=== PATIENT | female | born 1970 | race Caucasian/White ===

== ENCOUNTER 2016-11-25 00:30 | Emergency (ER) | payer MEDICAID, OTHER ==
[~2016-11-25] VITALS: Ht 170.2 cm; Wt 109.0 kg
[~2016-11-25 00:30] MED LIST: PREN-88 PO
[2016-11-25 04:36] VITALS: BP 125/75
== END 2016-11-25 04:38 | disposition home or self-care (01) ==
LOC: ER 00:30
DX: L50.8 Other urticaria (principal)
CPT/HCPCS: 99283

== ENCOUNTER 2020-07-10 04:00 | Emergency (ER) | payer MEDICAID, OTHER ==
[~2020-07-10] VITALS: Ht 162.6 cm; Wt 105.0 kg
[2020-07-10] MEDS ORDERED: IOHEXOL-300 100 ML BOTTLE ONE (04:43)
[2020-07-10 05:16] LABS: BASOPHILS % 1.2 % (0.0-2.0); EOSINOPHILS % 1.7 % (0.0-5.0); HEMATOCRIT. 40.5 % (36.0-48.0); HEMOGLOBIN. 13.4 g/dL (12.0-16.0); LYMPHOCYTES % 19.5 % (20.0-50.0); MEAN CORPUSCULAR HEMOGLOBIN 28.2 pg (28.0-32.0); MEAN CORPUSCULAR VOLUME 85.5 fL (81.0-99.0); MEAN PLATELET VOLUME 9.9 fl (7.4-10.4); MONOCYTES % 7.1 % (2.0-8.0); NEUTROPHILS % 70.5 % (40.0-76.0); PLATELET 183 x1000/uL (130-400); RED BLOOD CELL COUNT 4.74 mill/uL (4.2-5.4)
[2020-07-10 05:19] LABS: CHLORIDE 106 mEq/L (98-107)
[2020-07-10 05:22] LABS: PROTHROMBIN TIME 10.5 sec (9.6-11.0)
[2020-07-10 05:26] LABS: ETHANOL BLOOD < 10 mg/dL
[2020-07-10 05:33] LABS: HCG SCREEN NEGATIVE
[2020-07-10] MEDS ORDERED: ONDANSETRON HCL 4MG/2ML INJ IV ONE (06:30)
[2020-07-10] MEDS ORDERED: MORPHINE SULFATE 4 MG/ML CPJ (NOT FOR IM USE) IV ONE (06:30)
[2020-07-10] MEDS ORDERED: T3 PO (08:22)
[2020-07-10] MEDS ORDERED: ONDA4TAB5 MT (08:22)
[2020-07-10 10:49] VITALS: BP 114/70
== END 2020-07-10 12:12 | disposition home or self-care (01) ==
LOC: ER 04:00
DX: R10.9 Unspecified abdominal pain (principal); M25.511 Pain in right shoulder; Z86.73 Personal history of transient ischemic attack (TIA), and cerebral infarction without residual deficits; Z79.899 Other long term (current) drug therapy
CPT/HCPCS: 36415; 71045; 73030; 74176; 80053; 80320; 83605; 83690; 84484; 84703; 85025; 85610; 86850; 86900; 86901; 93005; 99285; Q9967; G0480

== ENCOUNTER 2020-07-28 21:02 | Emergency (ER) | payer MEDICAID ==
[~2020-07-28] VITALS: Ht 170.2 cm; Wt 98.0 kg
[~2020-07-28 21:02] MED LIST changes: +ONDA4TAB5 MT; +T3 PO
[2020-07-29 00:43] LABS: BASOPHILS % 0.8 % (0.0-2.0); EOSINOPHILS % 0.9 % (0.0-5.0); HEMATOCRIT. 39.8 % (36.0-48.0); HEMOGLOBIN. 13.1 g/dL (12.0-16.0); LYMPHOCYTES % 23.5 % (20.0-50.0); MEAN CORPUSCULAR HEMOGLOBIN 28.3 pg (28.0-32.0); MEAN CORPUSCULAR VOLUME 85.9 fL (81.0-99.0); MEAN PLATELET VOLUME 10.5 fl (7.4-10.4); MONOCYTES % 7.1 % (2.0-8.0); NEUTROPHILS % 67.7 % (40.0-76.0); PLATELET 190 x1000/uL (130-400); RED BLOOD CELL COUNT 4.63 mill/uL (4.2-5.4); RED CELL DISTRIBUTION WIDTH 15.1 % (11.6-14.6)
[2020-07-29] MEDS ORDERED: METOCLOPRAMIDE HCL 10MG TABLET PO ONE (01:00)
[2020-07-29] MEDS ORDERED: ACETAMINOPHEN 325MG TABLET PO ONE (01:00)
[2020-07-29 01:04] LABS: CHLORIDE 106 mEq/L (98-107)
[2020-07-29] MEDS ORDERED: DEXAMETHASONE 10 MG/ML VIAL IV ONE (03:30)
[2020-07-29 07:58] VITALS: BP 143/91
== END 2020-07-29 07:56 ==
LOC: ER 21:02 → EDBEDREQ 07-29 03:57 → EDBEDREQTM 07-29 03:57 → CANBEDREQ 07-29 04:47 → ER 07-29 07:56
DX: R51.9 Headache, unspecified (principal); Z20.828 Contact with and (suspected) exposure to other viral communicable diseases; Z79.82 Long term (current) use of aspirin; Z86.73 Personal history of transient ischemic attack (TIA), and cerebral infarction without residual deficits
CPT/HCPCS: 36415; 70450; 73060; 73090; 93971; 96374; 99285; J1100; J8597

== ENCOUNTER 2021-03-04 18:26 | Emergency (ER) | payer MEDICAID, OTHER ==
[~2021-03-04] VITALS: Ht 165.1 cm; Wt 91.0 kg
[2021-03-04 19:32] LABS: CLARITY URINE CLEAR (CLEAR); COLOR URINE YELLOW (YELLOW); KETONES URINE NEGATIVE (NEGATIVE); LEUKOCYTE ESTERASE URINE NEGATIVE (NEGATIVE); NITRITE URINE NEGATIVE (NEGATIVE); OCCULT BLOOD URINE NEGATIVE (NEGATIVE); PH URINE 8.5 (4.5-8.0); PROTEIN URINE NEGATIVE (NEGATIVE); SPECIFIC GRAVITY URINE 1.005 (1.005-1.030); UROBILINOGEN URINE 0.2 E.U./dL (0.2-1.0)
[2021-03-04 21:35] LABS: BASOPHILS % 1.2 % (0.0-2.0); HEMATOCRIT. 38.1 % (36.0-48.0); HEMOGLOBIN. 12.7 g/dL (12.0-16.0); LYMPHOCYTES % 22.4 % (20.0-50.0); MEAN CORPUSCULAR HEMOGLOBIN 29.1 pg (28.0-32.0); MEAN CORPUSCULAR VOLUME 87.3 fL (81.0-99.0); MEAN PLATELET VOLUME 10.2 fl (7.4-10.4); MONOCYTES % 7.1 % (2.0-8.0); NEUTROPHILS % 67.3 % (40.0-76.0); PLATELET 265 x1000/uL (130-400); RED BLOOD CELL COUNT 4.36 mill/uL (4.2-5.4); RED CELL DISTRIBUTION WIDTH 13.6 % (11.6-14.6)
[2021-03-04 21:36] LABS: CHLORIDE 109 mEq/L (98-107)
[2021-03-04 23:44] VITALS: BP 131/82
== END 2021-03-04 23:53 | disposition home or self-care (01) ==
LOC: ER 18:26
DX: G40.909 Epilepsy, unspecified, not intractable, without status epilepticus (principal); I69.351 Hemiplegia and hemiparesis following cerebral infarction affecting right dominant side; I49.8 Other specified cardiac arrhythmias
CPT/HCPCS: 36415; 80053; 81003; 85025; 93005; 99284

== ENCOUNTER 2021-08-28 11:36 | Inpatient (IN) | payer MEDICAID ==
[~2021-08-28] VITALS: Ht 160 cm; Wt 89.5 kg
[2021-08-28] MEDS ORDERED: ASPIRIN 325MG EC TABLET PO ONE (12:15)
[2021-08-28 12:50] LABS: CHLORIDE 111 mEq/L (98-107)
[2021-08-28 12:56] LABS: BASOPHILS % 1.1 % (0.0-2.0); EOSINOPHILS % 1.2 % (0.0-5.0); HEMATOCRIT. 39.2 % (36.0-48.0); HEMOGLOBIN. 12.9 g/dL (12.0-16.0); LYMPHOCYTES % 27.4 % (20.0-50.0); MEAN CORPUSCULAR VOLUME 85.3 fL (81.0-99.0); MEAN PLATELET VOLUME 10.2 fl (7.4-10.4); MONOCYTES % 6.1 % (2.0-8.0); NEUTROPHILS % 64.2 % (40.0-76.0); PLATELET 244 x1000/uL (130-400); RED BLOOD CELL COUNT 4.59 mill/uL (4.2-5.4)
[2021-08-28] MEDS ORDERED: KETOROLAC 15MG/ML VIAL IV PRN (16:45)
[2021-08-28] MEDS ORDERED: CLONIDINE 0.1MG TABLET PO PRN (16:45)
[2021-08-28] MEDS ORDERED: NITROGLYCERIN 0.4MG TABLET SL SL PRN (16:45)
[2021-08-28] MEDS ORDERED: DOCUSATE SODIUM 100MG CAPSULE PO PRN (16:45)
[2021-08-28] MEDS ORDERED: ONDANSETRON HCL 4MG/2ML INJ IV PRN (16:45)
[2021-08-28] MEDS ORDERED: MAGNESIUM/ALUMINUM HYDROXIDE/SIMETHICONE 30ML UDC PO PRN (16:45)
[2021-08-28] MEDS ORDERED: ZOLPIDEM TARTRATE 5MG TABLET PO PRN (16:45)
[2021-08-28] MEDS ORDERED: GUAIFENESIN 200MG/10ML SUGAR FREE UDC PO PRN (16:45)
[2021-08-28] MEDS ORDERED: LORAZEPAM 2MG/ML CPJ IV PRN (16:45)
[2021-08-28] MEDS ORDERED: IPRATROPIUM/ALBUTEROL 0.5-3(2.5)MG/3ML NEB NEB PRN (16:45)
[2021-08-28] MEDS ORDERED: ACETAMINOPHEN 325MG TABLET PO PRN ×2 (16:45)
[2021-08-28 16:58] LABS: ETHANOL BLOOD < 10 mg/dL
[2021-08-28 17:00] LABS: TOTAL IRON BINDING CAPACITY 444 ug/dL (250-450)
[2021-08-28 17:01] LABS: LDL CHOLESTEROL 102 mg/dL (5-100)
[2021-08-28 17:02] LABS: HDL CHOLESTEROL 44 mg/dL (40-59)
[2021-08-28 17:03] LABS: T4 FREE 0.98 ng/dL (0.76-1.46)
[2021-08-28] MEDS: CLOPIDOGREL 75MG TABLET PO SCH (17:03)
[2021-08-28] MEDS: ENOXAPARIN 40MG/0.4ML SYR SUBCUT SCH (17:03)
[2021-08-28 17:30] LABS: FOLIC ACID (FOLATE) SERUM 19.2 ng/mL (>5.38)
[2021-08-28] MEDS: FAMOTIDINE 20MG TABLET PO SCH (22:37)
[2021-08-29 00:05] VITALS: BP 114/68
[2021-08-29 00:36] LABS: CREATINE KINASE 51 IU/L (26-192)
[2021-08-29 00:37] LABS: CREATINE KINASE MB FRACTION 1.7 ng/mL (0.5-3.6)
[2021-08-29] MEDS ORDERED: *PATIENT'S OWN MEDICATION STORAGE XX SCH (00:45)
[2021-08-29 04:00] VITALS: BP 119/66
[2021-08-29 07:43] LABS: BASOPHILS % 1.3 % (0.0-2.0); EOSINOPHILS % 1.7 % (0.0-5.0); HEMATOCRIT. 39.2 % (36.0-48.0); LYMPHOCYTES % 31.8 % (20.0-50.0); MEAN CORPUSCULAR HEMOGLOBIN 27.7 pg (28.0-32.0); MEAN CORPUSCULAR VOLUME 83.6 fL (81.0-99.0); MONOCYTES % 8.1 % (2.0-8.0); NEUTROPHILS % 57.1 % (40.0-76.0); PLATELET 264 x1000/uL (130-400); RED BLOOD CELL COUNT 4.69 mill/uL (4.2-5.4); RED CELL DISTRIBUTION WIDTH 14.9 % (11.6-14.6)
[2021-08-29 07:54] LABS: CHLORIDE 112 mEq/L (98-107)
[2021-08-29 08:00] VITALS: BP 124/78
[2021-08-29 08:05] LABS: PHOSPHORUS 4.2 mg/dL (2.5-4.9)
[2021-08-29 08:11] LABS: CREATINE KINASE MB FRACTION 1.2 ng/mL (0.5-3.6)
[2021-08-29] MEDS: CLOPIDOGREL 75MG TABLET PO SCH (08:47)
[2021-08-29] MEDS: FAMOTIDINE 20MG TABLET PO SCH ×2 (08:49→21:41)
[2021-08-29 10:30] LABS: *AMPHETAMINES SCREEN URINE NEGATIVE (NEGATIVE); *BARBITURATES SCREEN URINE NEGATIVE (NEGATIVE); *BENZODIAZEPINES SCREEN URINE NEGATIVE (NEGATIVE); *COCAINE SCREEN URINE NEGATIVE (NEGATIVE); METHADONE URINE SCREEN NEGATIVE (NEGATIVE); OPIATES URINE SCREEN NEGATIVE (NEGATIVE)
[2021-08-29 10:31] LABS: CANNABINOID URINE SCREEN NEGATIVE (NEGATIVE); PHENCYCLIDINE URINE SCREEN NEGATIVE (NEGATIVE)
[2021-08-29 12:00] VITALS: BP 124/80
[2021-08-29 16:00] VITALS: BP 125/79
[2021-08-29] MEDS: ENOXAPARIN 40MG/0.4ML SYR SUBCUT SCH (17:18)
[2021-08-29 22:16] VITALS: BP 116/66
[2021-08-30] VITALS: BP 114/68
[2021-08-30] MEDS ORDERED: BACL-141 PO (02:22)
[2021-08-30] MEDS ORDERED: ZONI100C45 PO (02:22)
[2021-08-30 03:44] VITALS: BP 101/62
[2021-08-30 08:00] VITALS: BP 93/52
[2021-08-30] MEDS: CLOPIDOGREL 75MG TABLET PO SCH (08:10)
[2021-08-30] MEDS: FAMOTIDINE 20MG TABLET PO SCH (08:10)
[2021-08-30] MEDS ORDERED: ASPI-1406 MT (10:20)
[2021-08-30] MEDS ORDERED: ATOR10TA MT (10:20)
[2021-08-30 11:24] VITALS: BP 93/52
[2021-08-30 12:00] VITALS: BP 105/76
[2021-08-30] MEDS ORDERED: ENOXAPARIN 30MG/0.3ML SYR SUBCUT SCH (18:00)
== END 2021-08-30 12:55 | disposition home or self-care (01) | DRG 47 ==
LOC: ER 11:36 → MICUSO 13:43 → EDBEDREQTM 13:49 → EDBEDREQ 13:49 → ENRESERV 21:05 → 8WST 08-29 00:32
PROVIDERS: ADMIT Internal Medicine; ATTEND Internal Medicine
DX: G45.9 Transient cerebral ischemic attack, unspecified (principal); G40.909 Epilepsy, unspecified, not intractable, without status epilepticus; Z86.73 Personal history of transient ischemic attack (TIA), and cerebral infarction without residual deficits; Z79.899 Other long term (current) drug therapy
CPT/HCPCS: 36415; 70551; 70552; 71045; 80053; 80061; 80305; 80320; 82550; 82553; 82607; 82746; 83036; 83540; 83550; 83735; 83880; 84100; 84439; 84443; 84484; 85025; 93005; 93970; 97162; 97166; 97530; 99285; J1650; J1885; J2405; G0480